=== PATIENT | male | born 1980 | race Caucasian/White ===

== ENCOUNTER 2016-07-28 19:48 | Emergency (ER) | payer BC, OTHER ==
[~2016-07-28] VITALS: Ht 177.8 cm; Wt 86.2 kg
[~2016-07-28 19:48] MED LIST: CYCL10TA9 PO; ESCT10T PO; IBP800T PO
[2016-07-28] MEDS ORDERED: LORazepam INJ 2 MG/ML (ATIVAN) VIAL IVP ONE (20:15)
[2016-07-28 20:18] LABS: BASOPHILS # (AUTO) 0.1 10^3/uL (0.0-0.1); BASOPHILS % (AUTO) 1 % (0-10); EOSINOPHILS # (AUTO) 0.2 10^3/uL (0.0-0.3); EOSINOPHILS % (AUTO) 2 % (0-10); LYMPHOCYTES # (AUTO) 1.7 X 10^3 (1.0-4.0); LYMPHOCYTES % (AUTO) 18 % (12-44); MEAN CORPUSCULAR HEMOGLOBIN 31 PG (25-34); MEAN CORPUSCULAR HGB CONC 36 G/DL (32-36); MEAN CORPUSCULAR VOLUME 87 FL (80-99); MONOCYTES # (AUTO) 1.1 X 10^3 (0.0-1.0); MONOCYTES % (AUTO) 11 % (0-12); NEUTROPHILS # (AUTO) 6.6 X 10^3 (1.8-7.8); NEUTROPHILS % (AUTO) 69 % (42-75); PLATELET COUNT 237 10^3/uL (130-400); RED BLOOD COUNT 4.95 10^6/uL (4.35-5.85); RED CELL DISTRIBUTION WIDTH 12.8 % (10.0-14.5); WHITE BLOOD COUNT 9.6 10^3/uL (4.3-11.0)
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
--- NOTE | 2016-07-28 20:30 | Diagnostic Imaging Report ---
INDICATION: Chest pain for six hours. COMPARISON STUDY: Chest from 2012. FINDINGS: Frontal view of the chest demonstrates the lungs to be clear. The heart, mediastinum and pulmonary vascularity are normal. IMPRESSION: Normal chest. Dictated by: Dictated on workstation # [id number]
[2016-07-28 20:32] LABS: PROTHROMBIN TIME PATIENT 12.4 SEC (12.2-14.7)
[2016-07-28 20:38] LABS: ALANINE AMINOTRANSFERASE 20 U/L (0-55); ALBUMIN 4.2 G/DL (3.2-4.5); ANION GAP 13 MMOL/L (5-14); ASPARTATE AMINO TRANSFERASE 19 U/L (5-34); BILIRUBIN,TOTAL 0.4 MG/DL (0.1-1.0); BLOOD UREA NITROGEN 10 MG/DL (7-18); BUN/CREATININE RATIO 9; CALCIUM 9.1 MG/DL (8.5-10.1); CARBON DIOXIDE 17 MMOL/L (21-32); CHLORIDE 108 MMOL/L (98-107); CREATINE KINASE 86 U/L (30-200); CREATININE SERUM 1.07 MG/DL (0.60-1.30); GFR ESTIMATED > 60; GLUCOSE 101 MG/DL (70-105); MAGNESIUM 2.3 MG/DL (1.8-2.4); SODIUM 138 MMOL/L (135-145); TOTAL PROTEIN 7.3 G/DL (6.4-8.2)
[2016-07-28 20:44] LABS: ACETAMINOPHEN < 10 UG/ML (10-30); ALCOHOL < 10 MG/DL (<10)
[2016-07-28] MEDS ORDERED: NS IV 1000 ML 1,000 ML IV ONE ×2 (20:51→23:08)
[2016-07-28] MEDS ORDERED: KETOROLAC 30 MG/ML VIAL IVP STA (20:51)
[2016-07-28 20:58] LABS: TROPONIN I < 0.30 NG/ML (<0.30)
[2016-07-28] MEDS ORDERED: cefTRIAXone INJECTION 1,000 MG in NS (IVPB) 50 ML IV ONE (21:00)
[2016-07-28] MEDS ORDERED: ONDANSETRON 4 MG/2 ML (SDV) Z0FRAN IVP ONE (21:00)
[2016-07-28 22:29] LABS: BILIRUBIN,URINE NEGATIVE (NEGATIVE); KETONES,URINE NEGATIVE (NEGATIVE); LEUKOCYTE ESTERASE ,URINE 1+ (NEGATIVE); NITRITE,URINE NEGATIVE (NEGATIVE); PH,URINE 8 (5-9); PROTEIN,URINE NEGATIVE (NEGATIVE); UROBILINOGEN,URINE NORMAL (NORMAL)
[2016-07-28] MEDS ORDERED: ACETAMINOPHEN 500 MG TAB (TYLENOL) PO STA (23:08)
[2016-07-28] MEDS ORDERED: CIPR500T4 PO (23:13)
[2016-07-28] MEDS ORDERED: ONDA8TAB13 PO (23:13)
[2016-07-28] MEDS ORDERED: NF-COLE1GM PO (23:17)
[2016-07-28 23:27] VITALS: BP 117/86
--- NOTE | 2016-07-29 07:15 | Diagnostic Imaging Report ---
PROCEDURE: CT urinary tract, rule out kidney stone. TECHNIQUE: Multiple contiguous axial images were obtained through the abdomen and pelvis without the use of intravenous contrast. INDICATION: Head pain, chest pain. FINDINGS: There are no opaque kidney stones. There is no hydronephrosis. The gallbladder absent. The pancreas nonacute. There is no focal inflammatory process. There is no appendicitis or diverticulitis. There is no ascites, abscess, hematoma or other fluid collection. The undistended urinary bladder wall is thickened. This is exaggerated by its lack of distention, however, an element of muscular hypertrophy could not be differentiated from changes of cystitis, correlate clinically. No perivesical edema. No aneurysm or adenopathy no mass. IMPRESSION: Nonspecific thickening of the urinary bladder mckenzie, negative appendix, unobstructed urinary tracts. No convincing evidence for an acute abnormality. Agree with preliminary. Dictated by: Dictated on workstation # [id number]
== END 2016-07-28 23:27 | disposition home or self-care (01) ==
LOC: EDUNIT# 19:48 → ER 19:51
DX: N30.90 Cystitis, unspecified without hematuria (principal); R11.0 Nausea; R51 Headache; F19.230 Other psychoactive substance dependence with withdrawal, uncomplicated; F41.9 Anxiety disorder, unspecified; F17.210 Nicotine dependence, cigarettes, uncomplicated
CPT/HCPCS: 36415; 71010; 74176; 80053; 80306; 80320; 80329; 81000; 82550; 82553; 83605; 83735; 84443; 84484; 85025; 85379; 85610; 85730; 87040; 87804; 93005; 93041; 96361; 96365; 96375

== ENCOUNTER 2017-01-13 21:39 | Emergency (ER) | payer OTHER ==
[~2017-01-13] VITALS: Ht 177.8 cm; Wt 77.1 kg
[~2017-01-13 21:39] MED LIST changes: +CIPR500T4 PO; +NF-COLE1GM PO; +ONDA8TAB13 PO
[2017-01-13] MEDS ORDERED: PRAV20TA3 PO (22:19)
[2017-01-13] MEDS ORDERED: CARB200T PO (22:19)
[2017-01-13] MEDS ORDERED: DULO20CA18 PO (22:19)
[2017-01-13] MEDS ORDERED: PROP20TA5 PO (22:19)
[2017-01-13] MEDS ORDERED: NS IV 1000 ML 1,000 ML IV ONE (22:49)
[2017-01-13] MEDS ORDERED: ONDANSETRON 4 MG/2 ML (SDV) Z0FRAN IVP ONE (23:00)
[2017-01-13 23:06] LABS: BILIRUBIN,URINE NEGATIVE (NEGATIVE); KETONES,URINE NEGATIVE (NEGATIVE); LEUKOCYTE ESTERASE ,URINE NEGATIVE (NEGATIVE); NITRITE,URINE NEGATIVE (NEGATIVE); PH,URINE 6 (5-9); PROTEIN,URINE NEGATIVE (NEGATIVE); UROBILINOGEN,URINE NORMAL (NORMAL)
[2017-01-13 23:06] LABS: BASOPHILS # (AUTO) 0.1 10^3/uL (0.0-0.1); BASOPHILS % (AUTO) 1 % (0-10); EOSINOPHILS # (AUTO) 0.5 10^3/uL (0.0-0.3); EOSINOPHILS % (AUTO) 5 % (0-10); LYMPHOCYTES % (AUTO) 42 % (12-44); MEAN CORPUSCULAR HEMOGLOBIN 30 PG (25-34); MEAN CORPUSCULAR HGB CONC 34 G/DL (32-36); MEAN CORPUSCULAR VOLUME 89 FL (80-99); MEAN PLATELET VOLUME 9.5 FL (7.4-10.4); MONOCYTES # (AUTO) 0.9 X 10^3 (0.0-1.0); MONOCYTES % (AUTO) 9 % (0-12); NEUTROPHILS # (AUTO) 4.2 X 10^3 (1.8-7.8); NEUTROPHILS % (AUTO) 44 % (42-75); PLATELET COUNT 258 10^3/uL (130-400); RED BLOOD COUNT 5.13 10^6/uL (4.35-5.85); WHITE BLOOD COUNT 9.6 10^3/uL (4.3-11.0)
[2017-01-13 23:14] LABS: WBC,URINE 0-2 /HPF
[2017-01-13 23:26] LABS: ALANINE AMINOTRANSFERASE 30 U/L (0-55); ALBUMIN 4.4 GM/DL (3.2-4.5); ANION GAP 14 MMOL/L (5-14); ASPARTATE AMINO TRANSFERASE 17 U/L (5-34); BILIRUBIN,TOTAL 0.4 MG/DL (0.1-1.0); BLOOD UREA NITROGEN 14 MG/DL (7-18); BUN/CREATININE RATIO 15; CALCIUM 9.3 MG/DL (8.5-10.1); CARBON DIOXIDE 21 MMOL/L (21-32); CHLORIDE 105 MMOL/L (98-107); CREATININE SERUM 0.93 MG/DL (0.60-1.30); GFR ESTIMATED > 60; GLUCOSE 99 MG/DL (70-105); LIPASE 21 U/L (8-78); POTASSIUM 4.3 MMOL/L (3.6-5.0); SODIUM 140 MMOL/L (135-145); TOTAL PROTEIN 7.3 GM/DL (6.4-8.2)
[2017-01-13] MEDS ORDERED: ONDA8TAB13 PO (23:34)
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
[2017-01-13 23:57] VITALS: BP 121/91
== END 2017-01-13 23:54 | disposition home or self-care (01) ==
LOC: EDUNIT# 21:39 → ER 21:41
DX: T88.7XXA Unspecified adverse effect of drug or medicament, initial encounter (principal); R11.2 Nausea with vomiting, unspecified; E78.00 Pure hypercholesterolemia, unspecified; I10 Essential (primary) hypertension; F41.9 Anxiety disorder, unspecified; F31.9 Bipolar disorder, unspecified; F17.210 Nicotine dependence, cigarettes, uncomplicated; Z91.5 Personal history of self-harm; Z90.89 Acquired absence of other organs
CPT/HCPCS: 36415; 80053; 81000; 83690; 84443; 85025; 96361; 96374

== ENCOUNTER 2017-07-28 16:49 | Emergency (ER) | payer SELFPAY ==
[~2017-07-28] VITALS: Ht 175.3 cm; Wt 81.6 kg
[~2017-07-28 16:49] MED LIST changes: +CARB200T PO; +DULO20CA18 PO; +PRAV20TA3 PO; +PROP20TA5 PO
--- OUTSIDE RECORDS SUMMARY | 2017-07-28 16:54 | XMS REPORT ---
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 Name Role Phone MICHAEL HICKMAN Unavailable PROBLEMS Type Condition ICD9-CM Code [id number] Code Onset Dates Condition Status SNOMED Code Problem Encounter for dental examination Z01.20 Active [id number] ALLERGIES Substance Reaction Event Type Date Status Penicillin V Potassium Unknown Drug Allergy October, Active SOCIAL HISTORY Never Assessed PLAN OF CARE Activity Details Follow Up prn Reason:hygiene VITAL SIGNS Blood pressure systolic 134 mmHg 2016-10-24 Blood pressure diastolic 93 mmHg 2016-10-24 MEDICATIONS No Known Medications RESULTS No Results PROCEDURES Procedure Date Ordered Result Body Site LTD ORAL EVALUATION - PROBLEM FOCUS October 24, 2016 INTRAORL-PERIAPICAL 1 FILM 16492 October 24, 2016 EXTRAC ERUPTED TOOTH/EXPOSED ROOT October 24, 2016 BITEWING - SINGLE FILM October 24, 2016 IMMUNIZATIONS No Known Immunizations
[2017-07-28] MEDS ORDERED: LACTATED RINGERS 1,000 ML IV STA (17:00)
[2017-07-28] MEDS ORDERED: HYOSCYAMINE 0.125 MG (LEVSIN) TAB PO ONE (17:00)
[2017-07-28] MEDS ORDERED: PANTOPRAZOLE 40 MG/10 ML (PROTONIX) VIAL IV STA (17:00)
[2017-07-28] MEDS ORDERED: KETOROLAC 30 MG/ML VIAL IVP ONE (17:00)
--- NOTE | 2017-07-28 18:00 | Diagnostic Imaging Report ---
INDICATION: Dyspnea and food poisoning. Portable upright AP view of the chest is obtained. Comparison is made to study of 07/28/2016. FINDINGS: Heart size and pulmonary vascularity are within normal limits, and the lungs are clear, bilaterally. IMPRESSION: Unremarkable chest. Dictated by: Dictated on workstation # [id number]
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
[2017-07-28 18:13] LABS: BASOPHILS % (AUTO) 0 % (0-10); EOSINOPHILS # (AUTO) 0.3 10^3/uL (0.0-0.3); EOSINOPHILS % (AUTO) 1 % (0-10); HEMATOCRIT 43 % (40-54); HEMOGLOBIN 15.1 G/DL (13.3-17.7); LYMPHOCYTES # (AUTO) 1.2 X 10^3 (1.0-4.0); LYMPHOCYTES % (AUTO) 7 % (12-44); MEAN CORPUSCULAR HEMOGLOBIN 31 PG (25-34); MEAN CORPUSCULAR HGB CONC 35 G/DL (32-36); MEAN CORPUSCULAR VOLUME 87 FL (80-99); MEAN PLATELET VOLUME 9.3 FL (7.4-10.4); MONOCYTES % (AUTO) 5 % (0-12); NEUTROPHILS # (AUTO) 15.5 X 10^3 (1.8-7.8); NEUTROPHILS % (AUTO) 86 % (42-75); PLATELET COUNT 256 10^3/uL (130-400); RED BLOOD COUNT 4.89 10^6/uL (4.35-5.85)
[2017-07-28 18:20] LABS: PROTHROMBIN TIME PATIENT 13.4 SEC (12.2-14.7)
[2017-07-28 18:29] LABS: BAND NEUTROPHILS 0 %; BASOPHILS % (MANUAL) 0 %; EOSINOPHILS % (MANUAL) 0 %; LYMPHOCYTES % (MANUAL) 8 %; MONOCYTES % (MANUAL) 4 %; NEUTROPHILS % (MANUAL) 88 %; RBC MORPH NORMAL
[2017-07-28 18:32] LABS: ALANINE AMINOTRANSFERASE 21 U/L (0-55); ALBUMIN 4.1 GM/DL (3.2-4.5); ALKALINE PHOSPHATASE 60 U/L (40-136); AMYLASE 26 U/L (25-125); BILIRUBIN,TOTAL 0.9 MG/DL (0.1-1.0); BUN/CREATININE RATIO 21; CALCIUM 8.4 MG/DL (8.5-10.1); CARBON DIOXIDE 19 MMOL/L (21-32); CHLORIDE 109 MMOL/L (98-107); CREATINE KINASE 87 U/L (30-200); CREATININE SERUM 0.77 MG/DL (0.60-1.30); GFR ESTIMATED > 60; GLUCOSE 110 MG/DL (70-105); LIPASE 20 U/L (8-78); MAGNESIUM 1.8 MG/DL (1.8-2.4); POTASSIUM 3.6 MMOL/L (3.6-5.0); SODIUM 140 MMOL/L (135-145); TOTAL PROTEIN 6.5 GM/DL (6.4-8.2)
[2017-07-28 18:51] LABS: CREATINE KINASE MB 1.3 NG/ML (<6.6); TSH (THYROID ANALYZER) 0.45 UIU/ML (0.35-4.94)
[2017-07-28] MEDS ORDERED: NS 100 ML (IVPB) BAG IV ONE (19:00)
[2017-07-28] MEDS ORDERED: IOHEXOL 350 MG/ML 100 ML (OMNIPAQUE 350) VIAL IV ONE (19:00)
--- NOTE | 2017-07-28 20:09 | Diagnostic Imaging Report ---
PROCEDURE: CT chest, abdomen, and pelvis with contrast. TECHNIQUE: Multiple contiguous axial images were obtained through the chest, abdomen, and pelvis after the administration of intravenous contrast. INDICATION: Abdomen cramping with nausea, vomiting and diarrhea for 5 hours. Prior history of right upper quadrant surgery with cholecystectomy. EXAMINATION: CT chest, abdomen and pelvis from 07/28/2017. CORRELATION is made to a previous CT abdomen and pelvis from 07/28/2016. FINDINGS: CHEST: There are several prominent but essentially fatty lymph nodes within the axillae bilaterally, likely within normal limits for patient, correlate clinically. There is no mediastinal or hilar adenopathy. Mild fat stranding within the anterior mediastinum is noted, likely residual thymic tissue. There is no pericardial effusion. There are no pleural effusions. Dependent atelectasis and/or areas of scar seen in both lower lobes. Remaining lungs are unremarkable. ABDOMEN / PELVIS: The liver is unremarkable for acute abnormality. There is evidence of previous cholecystectomy. The spleen is unremarkable. The adrenal glands and the pancreas are normal in appearance. There is fluid within slightly dilated small bowel loops throughout the abdomen and into the pelvis. A transition point is not seen and findings are likely on the basis of enteritis with an ileus also possible. A very early partial small bowel obstruction felt to be less likely but followup is recommended. Fluid in the right colon also noted. The remaining colon is decompressed and unremarkable. The stomach is distended and filled with fluid and debris. There is no ascites or free air. No lymphadenopathy. However, within the inguinal regions bilaterally, slightly prominent but not significantly enlarged lymph nodes are seen. Clinical correlation and followup recommended. There are small bilateral fat-containing inguinal hernias, left larger than right. Minimal wall thickening of the urinary bladder is seen, likely due to underdistention with cystitis felt to be less likely but clinical exclusion recommended. The kidneys are unremarkable. There is no acute osseous abnormality. IMPRESSION: 1. No acute process within the chest with incidental findings, as described above. 2. Incidental findings in the abdomen and the pelvis with findings of a likely enteritis. Correlate with symptoms. An ileus or a very early partial small bowel obstruction not excluded at this time and clinical followup would be recommended to assure improvement. Other findings, as above. Dictated by: Dictated on workstation # [id number]
[2017-07-28 20:22] LABS: BILIRUBIN,URINE NEGATIVE (NEGATIVE); CLARITY,URINE CLEAR; COLOR,URINE YELLOW; GLUCOSE, URINE (UA) NEGATIVE (NEGATIVE); KETONES,URINE NEGATIVE (NEGATIVE); LEUKOCYTE ESTERASE ,URINE 1+ (NEGATIVE); NITRITE,URINE NEGATIVE (NEGATIVE); PH,URINE 6.5 (5-9); PROTEIN,URINE 2+ (NEGATIVE); UROBILINOGEN,URINE 1 MG/DL (NORMAL)
[2017-07-28 20:32] LABS: BACTERIA,URINE NEGATIVE /HPF; RBC,URINE RARE /HPF; WBC,URINE RARE /HPF
[2017-07-28] MEDS ORDERED: ONDA4TAB8 PO (20:34)
[2017-07-28] MEDS ORDERED: DICY20TA10 PO (20:34)
[2017-07-28] MEDS ORDERED: HYOS0.1283 SL (20:34)
[2017-07-28 20:35] LABS: AMPHETAMINE SCREEN, URINE NEGATIVE (NEGATIVE); BARBITURATE SCREEN URINE NEGATIVE (NEGATIVE); BENZODIAZEPINES SCREEN URINE NEGATIVE (NEGATIVE); CANNABINOID SCREEN, URINE NEGATIVE (NEGATIVE); COCAINE SCREEN URINE NEGATIVE (NEGATIVE); METHADONE STAT NEGATIVE (NEGATIVE); METHAMPHETAMINE SCREEN URINE S NEGATIVE (NEGATIVE); OPIATE SCREEN URINE NEGATIVE (NEGATIVE); OXYCODONE STAT NEGATIVE (NEGATIVE); PROPOXYPHENE STAT NEGATIVE (NEGATIVE); TRICYCLIC ANTIDEPRESSANTS SCRE NEGATIVE (NEGATIVE)
[2017-07-28] MEDS ORDERED: RX-HYOSCYAMINE 0.125 MG SL (LEVSIN) PPK#6 ONE (20:43)
[2017-07-28] MEDS ORDERED: RX-ONDANSETRON 4 MG ODT (ZOFRAN) PPK #4 ONE (20:43)
[2017-07-28] MEDS ORDERED: RX-ONDANSETRON 4 MG ODT (ZOFRAN) PPK #4 PO STA (20:44)
[2017-07-28] MEDS ORDERED: RX-DICYCLOMINE 10 MG (BENTYL) CAP PPK#4 PO STA (20:44)
[2017-07-28] MEDS ORDERED: PANT40TA2 PO (20:45)
[2017-07-28] MEDS ORDERED: RX-HYOSCYAMINE 0.125 MG SL (LEVSIN) PPK#6 SL STA (20:45)
[2017-07-28 20:50] VITALS: BP 127/78
== END 2017-07-28 20:50 | disposition home or self-care (01) ==
LOC: EDUNIT# 16:49 → ER 16:50
DX: K52.9 Noninfective gastroenteritis and colitis, unspecified (principal); E78.00 Pure hypercholesterolemia, unspecified; I10 Essential (primary) hypertension; F41.9 Anxiety disorder, unspecified; F31.9 Bipolar disorder, unspecified; F17.210 Nicotine dependence, cigarettes, uncomplicated; Z90.89 Acquired absence of other organs; Z88.0 Allergy status to penicillin; Z91.5 Personal history of self-harm
CPT/HCPCS: 36415; 71045; 71260; 74177; 80053; 80306; 80320; 81000; 82150; 82550; 82553; 83690; 83735; 83880; 84443; 84484; 85007; 85027; 85610; 85730; 93005; 96374; 96375

== ENCOUNTER 2018-04-19 22:31 | Emergency (ER) | payer SELFPAY ==
[~2018-04-19] VITALS: Ht 175.3 cm; Wt 77.1 kg
[~2018-04-19 22:31] MED LIST changes: +DICY20TA10 PO; +HYOS0.1283 SL; +ONDA4TAB8 PO; +PANT40TA2 PO
--- OUTSIDE RECORDS SUMMARY | 2018-04-19 22:36 | XMS REPORT ---
Author Author JD ARANDA [facility] Address [address] [place] [address] Care Team Providers Care Sheetrock Applicator Name Role Phone ROSIJD Unavailable PROBLEMS Unknown Problems ALLERGIES Substance Reaction Event Type Date Status Penicillin V Potassium Unknown Drug Allergy Aug, Active ENCOUNTERS Encounter Location Date Diagnosis [facility] [id number] [place] [phone] Aug, Encounter for dental examination Z01.20 [facility] [id number], [place] [phone] Apr, [facility] [id number] [place] [address] [phone] Dec, Encounter for dental examination Z01.20 [facility] [address] [place] [address] [phone] October, Dental examination Z01.20 and Dental caries K02.9 IMMUNIZATIONS No Known Immunizations SOCIAL HISTORY Never Assessed REASON FOR VISIT 6 mo recall PLAN OF CARE Activity Details Follow Up 6 Months Reason:Recall VITAL SIGNS Blood pressure systolic 129 mmHg 2017-08-25 Blood pressure diastolic 86 mmHg 2017-08-25 MEDICATIONS No Known Medications RESULTS No Results PROCEDURES Procedure Date Ordered Result Body Site PROPHYLAXIS - ADULT August 25, 2017 TOPICAL FLUORIDE VARNISH August 25, 2017 INSTRUCTIONS MEDICATIONS ADMINISTERED No Known Medications
--- OUTSIDE RECORDS SUMMARY | 2018-04-19 22:36 | XMS REPORT ---
Author Author JD ARANDA Organization [facility] Address [address] [place] [address] Care Team Providers Care Baker Doughnut Name Role Phone JD ARANDA Unavailable PROBLEMS Unknown Problems ALLERGIES Substance Reaction Event Type Date Status Penicillin V Potassium Unknown Drug Allergy Dec, Active ENCOUNTERS Encounter Location Date Diagnosis [facility] [id number], [place] [phone] Aug, Encounter for dental examination Z01.20 [facility] [id number] [phone] Apr, [facility] [address] [place] [phone] Dec, Encounter for dental examination Z01.20 [facility] [address] [place] [phone] October, Dental examination Z01.20 and Dental caries K02.9 IMMUNIZATIONS No Known Immunizations SOCIAL HISTORY Never Assessed REASON FOR VISIT prophy/teressa PLAN OF CARE Activity Details Follow Up 6 Months Reason:Recall VITAL SIGNS Heart Rate 70 bpm 2017-01-03 Blood pressure systolic 137 mmHg 2017-01-03 Blood pressure diastolic 90 mmHg 2017-01-03 MEDICATIONS No Known Medications RESULTS No Results PROCEDURES Procedure Date Ordered Result Body Site COMP ORAL EVALUATION - NEW/EST PT January 03, 2017 INTRAORL-PERIAPICAL 1 FILM [id number] January 03, 2017 TOPICAL FLUORIDE VARNISH January 03, 2017 PROPHYLAXIS - ADULT January 03, 2017 INTRAORL-PERIAPICAL EA ADD FILM January 03, 2017 INTRAORL-PERIAPICAL EA ADD FILM January 03, 2017 PANORAMIC FILM SEE ALSO CODE [id number] January 03, 2017 BITEWINGS - FOUR FILMS January 03, 2017 INSTRUCTIONS MEDICATIONS ADMINISTERED No Known Medications
[2018-04-19 23:34] LABS: BASOPHILS # (AUTO) 0.1 10^3/uL (0.0-0.1); BASOPHILS % (AUTO) 1 % (0-10); EOSINOPHILS # (AUTO) 0.5 10^3/uL (0.0-0.3); EOSINOPHILS % (AUTO) 3 % (0-10); HEMATOCRIT 44 % (40-54); HEMOGLOBIN 15.2 G/DL (13.3-17.7); LYMPHOCYTES # (AUTO) 4.1 X 10^3 (1.0-4.0); LYMPHOCYTES % (AUTO) 28 % (12-44); MEAN CORPUSCULAR HEMOGLOBIN 30 PG (25-34); MEAN CORPUSCULAR HGB CONC 34 G/DL (32-36); MEAN CORPUSCULAR VOLUME 88 FL (80-99); MEAN PLATELET VOLUME 9.9 FL (7.4-10.4); MONOCYTES # (AUTO) 1.1 X 10^3 (0.0-1.0); MONOCYTES % (AUTO) 8 % (0-12); NEUTROPHILS # (AUTO) 8.9 X 10^3 (1.8-7.8); NEUTROPHILS % (AUTO) 61 % (42-75); PLATELET COUNT 310 10^3/uL (130-400); RED BLOOD COUNT 5.05 10^6/uL (4.35-5.85); WHITE BLOOD COUNT 14.6 10^3/uL (4.3-11.0)
[2018-04-19 23:35] LABS: BILIRUBIN,URINE NEGATIVE (NEGATIVE); CLARITY,URINE SLIGHTLY CLOUDY; COLOR,URINE YELLOW; GLUCOSE, URINE (UA) NEGATIVE (NEGATIVE); KETONES,URINE NEGATIVE (NEGATIVE); LEUKOCYTE ESTERASE ,URINE 1+ (NEGATIVE); NITRITE,URINE NEGATIVE (NEGATIVE); PH,URINE 7 (5-9); PROTEIN,URINE NEGATIVE (NEGATIVE); UROBILINOGEN,URINE NORMAL (NORMAL)
[2018-04-19 23:45] LABS: AMORPHOUS SEDIMENT,UR LARGE AMOR PHOSPHATE /LPF; BACTERIA,URINE TRACE /HPF; WBC,URINE 0-2 /HPF
[2018-04-19 23:48] LABS: BAND NEUTROPHILS 0 %; BASOPHILS % (MANUAL) 0 %; EOSINOPHILS % (MANUAL) 3 %; LYMPHOCYTES % (MANUAL) 23 %; MONOCYTES % (MANUAL) 8 %; NEUTROPHILS % (MANUAL) 60 %; REACTIVE LYMPHOCYTES 6 %
[2018-04-19 23:49] LABS: RBC MORPH NORMAL
[2018-04-19 23:50] LABS: ALANINE AMINOTRANSFERASE 20 U/L (0-55); ALBUMIN 4.6 GM/DL (3.2-4.5); ALKALINE PHOSPHATASE 62 U/L (40-136); AMYLASE 27 U/L (25-125); BILIRUBIN,TOTAL 0.7 MG/DL (0.1-1.0); BUN/CREATININE RATIO 16; CARBON DIOXIDE 19 MMOL/L (21-32); CHLORIDE 107 MMOL/L (98-107); CREATININE SERUM 0.99 MG/DL (0.60-1.30); GFR ESTIMATED > 60; GLUCOSE 106 MG/DL (70-105); LIPASE 23 U/L (8-78); POTASSIUM 3.7 MMOL/L (3.6-5.0); SODIUM 140 MMOL/L (135-145); TOTAL PROTEIN 7.6 GM/DL (6.4-8.2)
[2018-04-20] MEDS ORDERED: LACTATED RINGERS 1,000 ML IV ONE (00:12)
[2018-04-20] MEDS ORDERED: KETOROLAC 30 MG/ML VIAL IVP ONE (00:15)
[2018-04-20] MEDS ORDERED: ALFUZOSIN HCL 10 MG TAB (UROXATRAL) PO SCH (00:15)
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
[2018-04-20] MEDS ORDERED: TAMS0.4C98 PO (00:30)
[2018-04-20] MEDS ORDERED: ONDA4TAB8 PO (00:30)
[2018-04-20] MEDS ORDERED: NITR-65 PO (00:30)
[2018-04-20] MEDS ORDERED: TAMSULOSIN 0.4 MG (FLOMAX) CAP PO SCH (00:30)
[2018-04-20] MEDS ORDERED: HYDR-87 PO (00:30)
[2018-04-20] MEDS ORDERED: RX-ONDANSETRON 4 MG ODT (ZOFRAN) PPK #4 PO STA (00:51)
[2018-04-20] MEDS ORDERED: RX-HYDROCODONE/APAP 5/325 MG #4 TAB PK PO PRN (01:00)
[2018-04-20 01:05] VITALS: BP 132/105
--- NOTE | 2018-04-20 06:47 | Diagnostic Imaging Report ---
PROCEDURE: CT urinary tract, rule out kidney stone. TECHNIQUE: Multiple contiguous axial images were obtained through the abdomen and pelvis without the use of intravenous contrast. INDICATION: Abdominal and flank pain for 3 days. History of kidney stones and cholecystectomy. Comparison: 07/28/2017 Findings: Lung bases are clear. The heart is normal in size. No focal liver lesions are seen. Cholecystectomy clips are noted. The spleen is unremarkable. The pancreas and adrenal glands are unremarkable. There is minimal right hydroureter, from a obstructing 3 mm calculus in the proximal right ureter, one to 2 cm distal to the ureteropelvic junction. No other renal calculi are seen. There is a simple appearing right renal cyst measuring 1 cm in size. The appendix is normal. Bowel loops are nondistended without evidence of obstruction. No free fluid or free air seen. There is mild thickening of the urinary bladder wall, likely due to decompression. There are bridging osteophytes at the sacroiliac joints bilaterally. Impression: 1. Obstructing 3 mm calculus in the proximal right ureter with minimal hydroureter. 2. Mild thickening of the urinary bladder wall, likely due to decompression, please correlate with urinalysis. Dictated by: Dictated on workstation # [id number]
--- NOTE | 2018-04-20 06:50 | Diagnostic Imaging Report ---
INDICATION: Abdominal and flank pain for 3 days. History of kidney stones. TECHNIQUE: Frontal view of the chest. Upright and supine frontal views of the abdomen. COMPARISON: 07/28/2017 FINDINGS: Lung volumes are normal. No focal consolidation is seen. No pleural effusion or pneumothorax is identified. The cardiac silhouette appears normal. Small density in the right humeral head is thought to represent a bone island. Bowel loops are nondistended without evidence of obstruction. No large collection of free air is seen. Cholecystectomy clips are seen. The previously noted 3 mm right ureteral calculus is not seen radiographically. Phleboliths are noted in the pelvis. IMPRESSION: 1. No acute pulmonary abnormality. No evidence of bowel obstruction or free air. The right ureteral 3 mm calculus is not well seen radiographically. Dictated by: Dictated on workstation # [id number]
== END 2018-04-20 01:05 | disposition home or self-care (01) ==
LOC: EDUNIT# 22:31 → ER 22:32
DX: N13.2 Hydronephrosis with renal and ureteral calculous obstruction (principal); E78.00 Pure hypercholesterolemia, unspecified; I10 Essential (primary) hypertension; F41.9 Anxiety disorder, unspecified; F31.9 Bipolar disorder, unspecified; F17.210 Nicotine dependence, cigarettes, uncomplicated; Z88.0 Allergy status to penicillin; Z90.89 Acquired absence of other organs
CPT/HCPCS: 36415; 74022; 74176; 80053; 81000; 82150; 83690; 85007; 85027

== ENCOUNTER → 2022-02-08 | Outpatient (CLI) | payer OTHER ==
[~2022-02-08] MED LIST changes: -CIPR500T4 PO; +CIPR500T5 PO; +DICY20TA PO; -DICY20TA10 PO; -DULO20CA18 PO; +DULO20CA19 PO; +HYDR-4085 PO; +NITR-65 PO; +TMSL.4C PO
--- NOTE | 2022-02-08 12:47 | Diagnostic Imaging Report ---
Indication: Positive TB blood test PA and lateral chest obtained at 11:48 AM and compared to 07/28/2017. The heart and mediastinal silhouette are normal in appearance. The lungs are clear. There is no pneumothorax or pleural fluid. IMPRESSION: Negative chest. Dictated by: Dictated on workstation # [id number]
== END ==
LOC: RAD 11:08
PROVIDERS: ATTEND Family Medicine
DX: A15.9 Respiratory tuberculosis unspecified (principal)
CPT/HCPCS: 71046

== ENCOUNTER 2022-10-29 19:25 | Emergency (ER) | payer OTHER ==
[~2022-10-29] VITALS: Ht 177.8 cm; Wt 78.0 kg
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
[2022-10-29 19:58] VITALS: BP_SYST 123; BP_SYST 127; BP_SYST 136; BP_DIAS 78; BP_DIAS 82; BP_DIAS 86
[2022-10-29] MEDS ORDERED: NS IV 1000 ML 1,000 ML IV SCH (20:00)
[2022-10-29 20:13] LABS: BASOPHILS # (AUTO) 0.1 10^3/uL (0.0-0.1); BASOPHILS % (AUTO) 1 % (0-10); EOSINOPHILS # (AUTO) 0.4 10^3/uL (0.0-0.3); EOSINOPHILS % (AUTO) 4 % (0-10); HEMATOCRIT 42 % (40-54); HEMOGLOBIN 14.3 g/dL (13.3-17.7); LYMPHOCYTES # (AUTO) 2.8 10^3/uL (1.0-4.0); LYMPHOCYTES % (AUTO) 29 % (12-44); MEAN CORPUSCULAR HEMOGLOBIN 31 pg (25-34); MEAN CORPUSCULAR HGB CONC 34 g/dL (32-36); MEAN CORPUSCULAR VOLUME 90 fL (80-99); MEAN PLATELET VOLUME 9.4 fL (9.0-12.2); MONOCYTES # (AUTO) 0.8 10^3/uL (0.0-1.0); MONOCYTES % (AUTO) 8 % (0-12); NEUTROPHILS # (AUTO) 5.6 10^3/uL (1.8-7.8); NEUTROPHILS % (AUTO) 57 % (42-75); PLATELET COUNT 270 10^3/uL (130-400); WHITE BLOOD COUNT 9.7 10^3/uL (4.3-11.0)
--- NOTE | 2022-10-29 20:15 | Diagnostic Imaging Report ---
INDICATION: Dizziness and shortness of breath. COMPARISON: 02/08/2022. FINDINGS: The lungs appear clear without focal airspace opacities or consolidation. There are no findings of an effusion. There is no evidence of a pneumothorax. Heart size and mediastinal contours appear appropriate. Pulmonary vascularity appears within normal limits. There is no acute or suspicious osseous abnormality demonstrated. IMPRESSION: No radiographic evidence of an acute cardiopulmonary process. Dictated by: Dictated on workstation # [id number]
[2022-10-29 20:35] LABS: CALCIUM 8.9 MG/DL (8.5-10.1); CREATININE SERUM 0.87 MG/DL (0.60-1.30)
[2022-10-29 21:05] VITALS: BP 125/81
== END 2022-10-29 21:05 | disposition home or self-care (01) ==
LOC: EDUNIT# 19:25 → ER 19:28
DX: R42 Dizziness and giddiness (principal); R06.02 Shortness of breath; F17.210 Nicotine dependence, cigarettes, uncomplicated
CPT/HCPCS: 36415; 71046; 80048; 85025; 93005